=== PATIENT | male | born 1995 | race Caucasian/White ===

== ENCOUNTER 2016-12-31 11:04 | Emergency (ER) | payer OTHER ==
[~2016-12-31] VITALS: Ht 185.4 cm; Wt 80.0 kg
[2016-12-31 11:07] VITALS: TEMP 36.5; Ht 185.4 cm; Wt 80.0 kg
[2016-12-31] MEDS ORDERED: OXYCODONE HCL IR 5 MG TAB (IMMEDIATE RELEASE) PO STA ×2 (11:58→13:42)
--- NOTE | 2016-12-31 11:58 | EMERGENCY ROOM VISIT NOTE ---
History First contact with patient: 11:34 Chief Complaint: BACK PAIN Stated Complaint: BACK PAIN SUFFERED WHILE PLAYING BASKETBALL History of Present Illness The patient is a 21 year old male who presents to the Emergency Room via private vehicle coming by father with complaints of "back pain suffered while playing basketball". The patient states that around 8:30 PM yesterday he was at the intramural building at [facility] playing basketball and while jogging down the court he felt a pulling sensation in his mid back. This was followed by immediate pain rated as a 7-8/10. He points to his inferior thoracic and superior lumbar region as a location of the pain. He does have pain with deep breaths. He notes that he was slumped over for a period of time and started they're hoping the pain would go away but the pain has persisted. He has taken Advil for the pain with minimal relief. He denies any cough, lower extremity weakness, bowel or bladder incontinence, numbness or tingling in genital region , pain radiating down his legs, other symptoms, radiation of pain, history of injury, history of heart or lung troubles, history of blood clots. Review of Systems A complete 10-point Review of Systems was discussed with the patient, with pertinent positives and negatives listed in the History of Present Illness. All remaining Review of Systems questions can be considered negative unless otherwise specified. Past Medical/Surgical History Unremarkable. Family History Unremarkable. Social History Smoking Status: Never Smoker Social History: Patient lives with friends while at school, and family when school is not in session. He denies tobacco products but admits to alcohol consumption. Current/Historical Medications Scheduled PRN Oxycodone Ir (Roxicodone Ir), 1-2 TAB PO Q4H PRN for Pain Allergies Coded Allergies: No Known Allergies (Unverified , 12/31/16) Physical Exam Vital Signs Date Time Temp Pulse Resp B/P Pulse Ox O2 Delivery O2 Flow Rate FiO2 12/31/16 14:31 55 16 128/79 97 Room Air 12/31/16 12:51 59 16 150/82 99 Room Air 12/31/16 11:07 36.5 74 16 158/80 99 Room Air Physical Exam VITAL SIGNS - Vital signs and nursing notes were reviewed. Patient is afebrile , he is slightly tachycardic at 158/80, he is non-tachycardic and is saturating well on room air at 99%. GENERAL -21-year-old male appearing his stated age who is in no acute distress. Communicates well with provider and answers questions appropriately. SKIN - Without rashes. No breaks in the integument. HEAD - NC/AT. EYES - Sclera anicteric. Palpebral conjunctiva pink and moist with no injection noted. EARS - No deformities of external structures noted on gross examination bilaterally. NOSE - Midline and without cyanosis. No epistaxis or purulent drainage noted. Septum midline without deviation or septal hematoma noted. MOUTH/OROPHARYNX - Without perioral cyanosis. NECK - Neck with FROM. Supple to palpation. No C-spine tenderness. LUNGS - Chest wall symmetric without accessory muscle use, intercostals retractions, or central cyanosis. Normal vesicular breath sounds CTA B/L. No wheezes, rales, or rhonchi appreciated. CARDIAC - RRR with S1/S2. No murmur, rubs, or gallops appreciated. ABDOMEN - Abdominal contour without pulsations or visible masses. BS normoactive all four quadrants. No tenderness, palpable masses, hepatosplenomegaly, or ascites noted. MUSULOSKELETAL: There is no reproducible tenderness to palpation overlying the spine. There is no paraspinous muscular tenderness. With forward flexion there is increased pain in the mid back. EXTREMITIES - No clubbing or peripheral cyanosis. No pretibial edema present. Vascular intact. +5/5 strength noted in UE/LE bilaterally. NEUROLOGIC - Cranial nerves II through XII grossly intact. Sensory intact to light touch throughout. No neurologic deficits appreciated upon exam. PSYCH - A&Ox3 and cooperates fully with examiner. Pt is very pleasant and interacts well with examiner. Medical Decision & Procedures ER Provider Diagnostic Interpretation: CHEST CTA for PULMONARY ARTERIES CT DOSE: 275.35 mGy.cm HISTORY: Chest pain dyspnea TECHNIQUE: Multiaxial CT images of the chest were performed following the intravenous administration of contrast to evaluate the pulmonary arteries. Maximal intensity projection images were also obtained. COMPARISON STUDY: None. FINDINGS: There is a normal caliber thoracic aorta with no evidence for dissection. There is no evidence for pulmonary embolus. No pleural effusions. No pneumothorax. The liver and spleen are unremarkable. No mediastinal or hilar lymphadenopathy. The central airways are patent. The lungs are clear. IMPRESSION: No evidence for pulmonary embolus. The lungs are clear. Electronically signed by: Kojo Foster M.D. 12/31/2016 2:10 PM Dictated Date/Time: 12/31/2016 2:06 PM CHEST 2 VIEWS ROUTINE CLINICAL HISTORY: Mid back pain trauma. Pain. COMPARISON STUDY: No previous studies for comparison. FINDINGS: The bones soft tissues and hemidiaphragms are normal. The cardiomediastinal silhouette is normal. The lungs are clear. The pulmonary vasculature is normal. IMPRESSION: Negative chest. Electronically signed by: Kojo Foster M.D. 12/31/2016 12:42 PM Dictated Date/Time: 12/31/2016 12:41 PM LUMBAR SPINE 2 OR 3 VIEWS CLINICAL HISTORY: Mid back pain trauma. Pain. COMPARISON STUDY: None FINDINGS: Normal study IMPRESSION: No acute process. Normal study. Electronically signed by: Kojo Foster M.D. 12/31/2016 12:40 PM Dictated Date/Time: 12/31/2016 12:39 PM [~ rep ct add3]] THORACIC SPINE 3 VIEWS HISTORY: Trauma. Pain. Mid back pain COMPARISON: None. FINDINGS: There is no fracture. No subluxation. Disc spaces are preserved. IMPRESSION: No fracture or subluxation within the thoracic spine. Electronically signed by: Kojo Foster M.D. 12/31/2016 12:41 PM Dictated Date/Time: 12/31/2016 12:40 PM Laboratory Results 12/31/16 11:55 Red Blood Count 5.24, Mean Corpuscular Volume 88.2, Mean Corpuscular Hemoglobin 32.3, Mean Corpuscular Hemoglobin Concent 36.6, Mean Platelet Volume 9.6, Neutrophils (%) (Auto) 56.8, Lymphocytes (%) (Auto) 30.9, Monocytes (%) (Auto) 10.5, Eosinophils (%) (Auto) 0.9, Basophils (%) (Auto) 0.5, Neutrophils # (Auto ) 3.13, Lymphocytes # (Auto) 1.70, Monocytes # (Auto) 0.58, Eosinophils # (Auto ) 0.05, Basophils # (Auto) 0.03 12/31/16 11:55 Test 12/31/16 11:55 12/31/16 12:05 White Blood Count 5.51 K/uL (4.8-10.8) Red Blood Count 5.24 M/uL (4.7-6.1) Hemoglobin 16.9 g/dL (14.0-18.0) Hematocrit 46.2 % (42-52) Mean Corpuscular Volume 88.2 fL (80-100) Mean Corpuscular Hemoglobin 32.3 pg (25-34) Mean Corpuscular Hemoglobin Concent 36.6 g/dl (32-36) Platelet Count 255 K/uL (130-400) Mean Platelet Volume 9.6 fL (7.4-10.4) Neutrophils (%) (Auto) 56.8 % Lymphocytes (%) (Auto) 30.9 % Monocytes (%) (Auto) 10.5 % Eosinophils (%) (Auto) 0.9 % Basophils (%) (Auto) 0.5 % Neutrophils # (Auto) 3.13 K/uL (1.4-6.5) Lymphocytes # (Auto) 1.70 K/uL (1.2-3.4) Monocytes # (Auto) 0.58 K/uL (0.11-0.59) Eosinophils # (Auto) 0.05 K/uL (0-0.5) Basophils # (Auto) 0.03 K/uL (0-0.2) RDW Standard Deviation 41.7 fL (36.4-46.3) RDW Coefficient of Variation 12.9 % (11.5-14.5) Immature Granulocyte % (Auto) 0.4 % Immature Granulocyte # (Auto) 0.02 K/uL (0.00-0.02) Anion Gap 8.0 mmol/L (3-11) Est Creatinine Clear Calc Drug Dose 110.9 ml/min Estimated GFR () 100.3 Estimated GFR (Non- 86.5 BUN/Creatinine Ratio 16.3 (10-20) Calcium Level 9.2 mg/dl (8.5-10.1) Total Creatine Kinase 295 U/L (39-308) Bedside D-Dimer 425 ng/mlFEU (0-450) Bedside Troponin I 0.000 ng/ml (0-0.045) Medications Administered Medications (Trade) Dose Ordered Sig/Jose E Route Start Time Stop Time Status Last Admin Dose Admin Oxycodone HCl (Roxicodone Immediate Rel Tab) 5 mg NOW STAT PO 12/31/16 11:58 12/31/16 11:59 DC 12/31/16 12:04 5 MG Oxycodone HCl (Roxicodone Immediate Rel Tab) 5 mg NOW STAT PO 12/31/16 13:42 12/31/16 13:44 DC 12/31/16 13:49 5 MG Medical Decision Patient was seen and evaluated as above. After obtaining a thorough history and physical examination I was concerned because the patient's back pain was not reproducible with palpation. There was also concern for potential heart and lung abnormality. IV access was obtained and a CBC, PRP, white care troponin, [id number] d-dimer, stat EKG, chest two-view routine, thoracic and lumbar radiographs obtained secondary to subjective and objective exam patient findings. CBC essentially unremarkable. Point care d-dimer 425. Point of Care troponin 0. BUN slightly high patient was encouraged to drink fluids. Electrolytes within normal limits and no evidence of acute renal failure. CPK negative. Radiographs of the chest, lumbar and thoracic spine were negative for acute process. I did discuss the case with my attending and then thoroughly discussed the case with the patient and his father and after much deliberation it was decided to obtain a CTA of the chest with patient and father agreement/approval as well. There was concern for PE but the CT of the chest was negative. Findings were discussed with the patient. EKG was obtained and revealed sinus bradycardia rate of 57 bpm with sinus arrhythmia. There was no acute ischemia or ectopy noted but possible RSR. Patient was instructed to have a repeat EKG performed with his family doctor. I do not believe these are emergent findings. After the workup is likely the patient is experiencing a musculoskeletal strain. He was educated upon management. He was educated upon worrisome symptoms in which to return, had questions prior to discharge and was discharged home in good condition. He is to follow-up with the orthopedics by specialist for his back if no resolution of his symptoms. He is to return here with worsening of symptoms. For pain he was given 10 mg of OxyIR total here with good resolution of his pain. He was given a short-term prescription for this. In the evaluation treatment this patient the following differential diagnoses were entertained: PE, myocardial infarction, pneumonia, muscular skeletal strain , fracture of the lumbar spine, thoracic spine, among others. Impression Primary Impression: Back strain Departure Information Dispostion Home / Self-Care Condition GOOD Prescriptions Oxycodone Ir (Roxicodone Ir) 5 Mg Tab 1-2 TAB PO Q4H Y for Pain, #15 TAB For Initial Treatment Prov: Andres Abarca PA-C 12/31/16 Referrals No Doctor, Assigned (PCP) Willie Arrieta, DO Patient Instructions [facility] Additional Instructions You have been treated in the Emergency Department for Back Pain. You have received pain medicine in the emergency department which impairs your ability to operate a vehicle. It is illegal for you to drive after receiving these medicines. You have been prescribed Oxy IR to be used for pain control. This is a narcotic medication. You cannot drive or consume alcohol while on this medicine. This medicine should only be used for pain that cannot be controlled with over-the- counter pain medicines. We are only able to write for a short term supply of this out of the emergency department. Please consider taking this with a stool softener as we discussed. For pain control, you can use the following sham-nse-whgptbr medicines (if >12 yo): - Regular strength (325mg/tab) Tylenol (acetaminophen) 2 tabs every 4-6 hours as needed. Do not exceed 12 tablets in a 24 hour period. Avoid taking more than 4 grams (4000 mg) of Tylenol per day. This includes any other sources of acetaminophen you may take on a regular basis. - Regular strength (200 mg/tab) Advil (ibuprofen) 1-2 tabs every 4-6 hours as needed. Do not exceed a dose of 3200 mg per day. If this is an acute injury, ice can be applied to the area of pain for the first 3 days to help decrease pain and inflammation. After the first 3 days, a heating pad can be used over the area for continued soothing relief. You should schedule a follow-up appointment in 2-3 days with your Primary Care Provider for further evaluation and treatment of your back pain. I have listed the number for a retirement benefits specialist. Please consider calling them as we discussed. (Dr. Arrieta) Please have a repeat of your EKG done as soon as possible with your family doctor. Please follow-up and have basic labs repeated. Return to the Emergency Department if your current symptoms worsen despite treatment course outlined above, or if you develop any of the following symptoms : intractable pain despite aforementioned treatment course, loss of control of your bowel or bladder, numbness or tingling in your groin, or development of a fever. Please return to the emergency department with any new/concerning symptoms. Problem Qualifiers Primary Impression: Back strain Encounter type: initial encounter Qualified Codes: S39.012A - Strain of muscle, fascia and tendon of lower back, initial encounter
[2016-12-31 12:12] LABS: BASO % 0.5 %; BASO ABS # 0.03 K/uL (0-0.2); COMPLETE YES; EOS % 0.9 %; HEMATOCRIT 46.2 % (42-52); IG% 0.4 %; LYMPH % 30.9 %; MEAN CELL VOLUME 88.2 fL (80-100); MEAN CORPUSCULAR HEMOGLOBIN 32.3 pg (25-34); MEAN CORPUSCULAR HGB CONC 36.6 g/dl (32-36); MEAN PLATELET VOLUME 9.6 fL (7.4-10.4); MONO % 10.5 %; NEUT % 56.8 %; PLATELET COUNT 255 K/uL (130-400); RED BLOOD COUNT 5.24 M/uL (4.7-6.1); WHITE BLOOD COUNT 5.51 K/uL (4.8-10.8)
[2016-12-31 12:34] LABS: BUN/CREATININE RATIO 16.3 (10-20); CALCIUM 9.2 mg/dl (8.5-10.1); CREATININE 1.2 mg/dl (0.60-1.40); POTASSIUM 4.2 mmol/L (3.5-5.1)
--- NOTE | 2016-12-31 12:41 | DIAGNOSTIC IMAGING REPORT ---
LUMBAR SPINE 2 OR 3 VIEWS CLINICAL HISTORY: Mid back pain trauma. Pain. COMPARISON STUDY: None FINDINGS: Normal study IMPRESSION: No acute process. Normal study. Electronically signed by: Kojo Foster M.D. 12/31/2016 12:40 PM Dictated Date/Time: 12/31/2016 12:39 PM
--- NOTE | 2016-12-31 12:42 | DIAGNOSTIC IMAGING REPORT ---
THORACIC SPINE 3 VIEWS HISTORY: Trauma. Pain. Mid back pain COMPARISON: None. FINDINGS: There is no fracture. No subluxation. Disc spaces are preserved. IMPRESSION: No fracture or subluxation within the thoracic spine. Electronically signed by: Kojo Foster M.D. 12/31/2016 12:41 PM Dictated Date/Time: 12/31/2016 12:40 PM
--- NOTE | 2016-12-31 12:43 | DIAGNOSTIC IMAGING REPORT ---
CHEST 2 VIEWS ROUTINE CLINICAL HISTORY: Mid back pain trauma. Pain. COMPARISON STUDY: No previous studies for comparison. FINDINGS: The bones soft tissues and hemidiaphragms are normal. The cardiomediastinal silhouette is normal. The lungs are clear. The pulmonary vasculature is normal. IMPRESSION: Negative chest. Electronically signed by: Kojo Foster M.D. 12/31/2016 12:42 PM Dictated Date/Time: 12/31/2016 12:41 PM
[2016-12-31] MEDS ORDERED: OXYCODONE IR HOME PACK PO STA (13:18)
[2016-12-31] MEDS ORDERED: OPTIRAY 320 IV PRN (13:30)
--- NOTE | 2016-12-31 14:11 | DIAGNOSTIC IMAGING REPORT ---
CHEST CTA for PULMONARY ARTERIES CT DOSE: 275.35 mGy.cm HISTORY: Chest pain dyspnea TECHNIQUE: Multiaxial CT images of the chest were performed following the intravenous administration of contrast to evaluate the pulmonary arteries. Maximal intensity projection images were also obtained. COMPARISON STUDY: None. FINDINGS: There is a normal caliber thoracic aorta with no evidence for dissection. There is no evidence for pulmonary embolus. No pleural effusions. No pneumothorax. The liver and spleen are unremarkable. No mediastinal or hilar lymphadenopathy. The central airways are patent. The lungs are clear. IMPRESSION: No evidence for pulmonary embolus. The lungs are clear. Electronically signed by: Kojo Foster M.D. 12/31/2016 2:10 PM Dictated Date/Time: 12/31/2016 2:06 PM
[2016-12-31] MEDS ORDERED: OXYC1TAB3 PO (14:24)
[2016-12-31 14:31] VITALS: BP 128/79; PULSE 55; O2SAT 97
== END 2016-12-31 14:38 | disposition home or self-care (01) ==
LOC: C.EDB 11:07 → C.EDD 14:38
DX: S39.012A Strain of muscle, fascia and tendon of lower back, initial encounter (principal); X58.XXXA Exposure to other specified factors, initial encounter; Y93.67 Activity, basketball